=== PATIENT | male | born 1985 | race African-American/Black ===

== ENCOUNTER 2017-01-20 07:49 | Emergency (ER) | payer OTHER ==
[~2017-01-20] VITALS: Ht 177.8 cm; Wt 80.0 kg
[~2017-01-20 07:49] MED LIST: AMOX500C PO; Z.0.NO CURRENT MEDS
[2017-01-20 07:50] VITALS: BP 130/81; PULSE 68; RESP 16; TEMP 98.6; O2SAT 100
[2017-01-20] MEDS ORDERED: MAGICPED SWISH-SWAL (08:13)
[2017-01-20] MEDS ORDERED: AMOX500C PO (08:13)
[2017-01-20] MEDS ORDERED: IBUP800T23 PO (08:13)
--- NOTE | 2017-01-20 08:16 | PD ---
HPI Chief Complaint: ENT Complaint Time Seen by Provider: 08:12 Travel History International Travel<30 days: No Contact w/Intl Traveler<30days: No Traveled to known affect area: No History of Present Illness HPI 31-year-old male presents to emergency Department with complaint of sore throat since Friday. Denies lump in throat, difficulty swallowing, unusual drooling. Reports painful swallowing. Denies fever, vomiting. Denies headache, cough, nasal congestion, ear pain. Denies difficulty breathing or airway edema. Has been drinking warm tea with no relief of symptoms. Has not taken any other medications or tried any treatments to alleviate his symptoms. No known allergies. Has no other medical complaints. No other modifying factors or associated signs and symptoms. PFSH Past Medical History Medical History: Denies Significant Hx Influenza Vaccination: No Past Surgical History Surgical History: No Previous Surgery Social History Alcohol Use: Yes (occas) Tobacco Use: Yes Substance Use: No ( marijuana) Allergies-Medications (Allergen,Severity, Reaction): Coded Allergies: No Known Allergies (Verified , 01/20/17) Reported Meds & Prescriptions Reported Meds & Active Scripts Active Ibuprofen 800 Mg Tab 800 Mg PO Q6HR PRN Magic Mouthwash Pediatric/Adult Liq (Lidocaine/Diphenhydr/Alum/Mg/Simeth) 60 Ml Susp 5 Ml SWISH-SWAL Q3HR PRN Each 5mL contains: Diphenydramine 4.5mg, Viscous Lidocaine 2% 10mg, Maalox Advanced Regular Strength 2.7ml Amoxicillin 500 Mg Cap 500 Mg PO BID 10 Days Review of Systems Except as stated in HPI: all other systems reviewed are Neg Physical Exam Narrative GENERAL: Well-nourished, well-developed patient, in no acute distress; afebrile , nontoxic-appearing SKIN: Warm and dry. No rash. HEAD: Atraumatic. Normocephalic. EYES: Pupils equal and round at 3 mm with brisk reaction. No scleral icterus. No injection or drainage. PERRLA. ENT: Mucosa pink and dry. Pharynx with 2+ tonsils; with erythema, exudate, and edema. No Uvular edema. No uvular, palatal, or tonsillar deviation. Airway patent. Voice is hoarse. EARS: Bilateral pinnae and external canals appear within normal limits. Bilateral tympanic membranes without erythema, dullness or perforation.. NECK: Trachea midline. Anterior cervical lymphadenopathy and tenderness. CARDIOVASCULAR: Regular rate and rhythm. No murmur appreciated. RESPIRATORY: No accessory muscle use. Clear to auscultation. Breath sounds equal bilaterally. GASTROINTESTINAL: Abdomen soft, non-tender, nondistended. Hepatic and splenic margins not palpable. Bowel sounds are active 4 quadrants. MUSCULOSKELETAL: No obvious deformities. No clubbing. No cyanosis. No edema. NEUROLOGICAL: Awake and alert. Oriented 3. No obvious cranial nerve deficits. Motor grossly within normal limits. Normal speech. Moves all extremities. PSYCHIATRIC: Appropriate mood and affect; insight and judgment normal. Data Data Last Documented VS Vital Signs Date Time Temp Pulse Resp B/P Pulse Ox O2 Delivery O2 Flow Rate FiO2 01/20/17 07:50 98.6 68 16 130/81 100 Room Air MDM Medical Decision Making Medical Screen Exam Complete: Yes Emergency Medical Condition: Yes Medical Record Reviewed: Yes Differential Diagnosis Exudative pharyngitis, strep pharyngitis, less likely peritonsillar abscess Narrative Course 31-year-old male with exudative pharyngitis. Denies lump in throat, difficulty swallowing, unusual drooling. Patient is afebrile and nontoxic-appearing. Amoxicillin, Magic mouthwash, ibuprofen prescribed for home. Patient verbalizes understanding and agreement with treatment plan. Patient is medically cleared and stable for discharge. Discussed reasons to return to the emergency department. Instructed patient to follow up with primary care provider. Patient agrees with treatment plan. The patients vital signs are stable and the patient is stable for outpatient follow-up and treatment. Patient discharged home, stable and in no acute distress. Diagnosis Primary Impression: Exudative pharyngitis Referrals: Primary Care Physician Patient Instructions: General Instructions, Pharyngitis (ED) Departure Forms: Tests/Procedures, Work Release Enter return to work date: January 21, 2017 Additional Instructions: Take Antibiotics as prescribed and complete full course of antibiotics Get plenty of sleep/rest Rest your voice Drink plenty of fluids to prevent dehydration Use warm saltwater gargles to soothe throat pain Use an air humidifier/turn off ceiling fans Use throat lozenges as needed for sore throat Use ibuprofen or acetaminophen as needed to relieve pain and fever Follow-up with your primary care provider within 2-4 days Return immediately to the emergency department with worsening of symptoms Med/Other Pt SpecificInfo: Prescription(s) given Scripts Ibuprofen 800 Mg [id number] Mg PO Q6HR PRN (PAIN) #30 TAB Ref 0 Prov:Gi Messer 01/20/17 Dokpuybtnvudmzb-Keulaogmi-Zqs-Alum-Simeth Liq (Magic Mouthwash Pediatric/Adult Liq)60 Ml Susp5 Ml SWISH-SWAL Q3HR PRN (SORE THROAT) #60 ML Ref 0 Each 5mL contains: Diphenydramine 4.5mg, Viscous Lidocaine 2% 10mg, Maalox Advanced Regular Strength 2.7ml Prov:Gi Messer 01/20/17 Amoxicillin 500 Mg [id number] Mg PO BID 10 Days Ref 0 Prov:Gi Messer 01/20/17 Disposition: 01 DISCHARGE HOME Condition: Stable Gi Messer January 20, 2017 08:16
== END 2017-01-20 08:18 | disposition home or self-care (01) ==
LOC: NEPK 07:49
DX: J02.9 Acute pharyngitis, unspecified (principal); Z72.0 Tobacco use
CPT/HCPCS: 99282